=== PATIENT | female | born 1970 | race Two or more races ===

== ENCOUNTER 2024-06-10 05:25 | Day surgery (SDC) | payer OTHER ==
[2024-06-04 10:10] VITALS: BP 123/80
[~2024-06-10] VITALS: Ht 160 cm; Wt 93.4 kg
[~2024-06-10 05:25] MED LIST: COZAAR25 MG PO; VITAMIN D310 MCG/1 M PO
== END 2024-06-10 15:20 | disposition home or self-care (01) ==
LOC: CIR.AMB 05:25
PROVIDERS: ATTEND Surgery
DX: D21.0 Benign neoplasm of connective and other soft tissue of head, face and neck (principal); R22.0 Localized swelling, mass and lump, head